=== PATIENT | female | born 1995 | race Caucasian/White ===

== ENCOUNTER 2023-09-23 23:22 | Emergency (ER) | payer OTHER ==
[2023-09-23 23:30] VITALS: BP 127/71; PULSE 68; RESP 18; TEMP 98.4
[2023-09-23 23:33] VITALS: BMI 30.7
[2023-09-24] MEDS ORDERED: METOCLOPRAMIDE HCL INJECTION 10 MG/2 ML VIAL ONE (00:03)
[2023-09-24] MEDS ORDERED: ACETAMINOPHEN INJECTION 100 ML IVPB ONE (00:04)
[2023-09-24] MEDS: ACETAMINOPHEN 1000 MG/100 ML BAG IVPB ONE (00:15)
[2023-09-24] MEDS: LACTATED RINGERS SOLUTION 1000 ML INFUS.BAG IV ONE (00:16)
[2023-09-24] MEDS: METOCLOPRAMIDE HCL INJECTION 10 MG/2 ML VIAL IVPB ONE (00:16)
[2023-09-24 00:25] LABS: BASO % 0.5 % (0-2.0); HEMATOCRIT 41.1 % (32.4-45.2); HEMOGLOBIN 13.7 GM/dL (10.7-15.3); LYMPH % 31.2 % (8-40); MCH 27.7 pg (25.7-33.7); MCHC 33.4 g/dl (32.0-36.0); MEAN CELL VOLUME 83.1 fl (80-96); MEAN PLT VOLUME 7.3 fl (7.5-11.1); MONO % 7.3 % (3.8-10.2); PLATELET COUNT 397 10^3/uL (134-434); RBC 4.95 M/mm3 (3.60-5.2); RDW 13.9 % (11.6-15.6); WHITE BLOOD COUNT 8.4 K/mm3 (4.0-10.0)
[2023-09-24 00:46] LABS: ALBUMIN 4.1 g/dl (3.4-5.0); BLOOD UREA NITROGEN 19.1 mg/dL (7-18); CALCIUM 9.4 mg/dL (8.5-10.1); MAGNESIUM 2.2 mg/dL (1.8-2.4)
[2023-09-24 00:49] LABS: CREATININE 0.9 mg/dL (0.55-1.3)
[2023-09-24 00:52] LABS: BILIRUBIN,TOTAL 0.3 mg/dL (0.2-1); TOT PROT 7.8 g/dl (6.4-8.2)
[2023-09-24 01:13] LABS: URINE APPEARANCE Clear; URINE BILIRUBIN Negative (NEGATIVE); URINE COLOR Yellow; URINE GLUCOSE (UA) Negative (NEGATIVE); URINE KETONE Negative (NEGATIVE); URINE LEUK ESTERASE 3+ (NEGATIVE); URINE NITRITE Negative (NEGATIVE); URINE PROTEIN 1+ (NEGATIVE); URINE UROBILINOGEN 0.2 mg/dL (0.2-1.0)
[2023-09-24 01:58] LABS: EPI CELLS 125.6 /uL (0-25.1); HYALINE CASTS 0.29 /uL (0-3.1); URINE BACTERIA 1779.3 /uL (0-1359); URINE RBC 161 /uL (0-23.9); URINE WBC 1471.8 /uL (0-25.8)
== END 2023-09-24 01:33 | disposition home or self-care (01) ==
LOC: JER 23:22
PROC: 3E033NZ Introduction of Analgesics, Hypnotics, Sedatives into Peripheral Vein, Percutaneous Approach (ICD-10-PCS; principal; 2023-09-23)
PROC: 3E033GC Introduction of Other Therapeutic Substance into Peripheral Vein, Percutaneous Approach (ICD-10-PCS; 2023-09-23)
DX: N39.0 Urinary tract infection, site not specified (principal); R51.9 Headache, unspecified; R42 Dizziness and giddiness; H53.8 Other visual disturbances
CPT/HCPCS: 36415; 80053; 81003; 83735; 84703; 85025; 87086; 99284-25; J0131